=== PATIENT | male | born 1960 | race Caucasian/White ===

== ENCOUNTER 2017-11-24 13:49 | Emergency (ER) | payer BC, OTHER ==
[~2017-11-24] VITALS: Ht 177.8 cm; Wt 89.0 kg
[~2017-11-24 13:49] MED LIST: METF850T PO; PRAV20TA2 PO
[2017-11-24 14:08] VITALS: BP 124/84; PULSE 89; RESP 16; TEMP 98.5; O2SAT 95
[2017-11-24 16:01] LABS: AUTOMATED NEUTROPHIL # 3.2 TH/MM3 (1.8-7.7); BASOPHIL % 0.7 % (0.0-2.0); EOSINOPHIL # 0.2 TH/MM3 (0-0.4); EOSINOPHIL % 3.7 % (0.0-4.0); HEMATOCRIT 47.6 % (39.0-51.0); HEMOGLOBIN 15.8 GM/DL (13.0-17.0); LYMPH % 32.1 % (9.0-44.0); LYMPHOCYTE # 1.9 TH/MM3 (1.0-4.8); MEAN CELL VOLUME 91.8 FL (80.0-100.0); MEAN CORPUSCULAR HEMOGLOBIN 30.4 PG (27.0-34.0); MEAN CORPUSCULAR HGB CONC 33.1 % (32.0-36.0); MEAN PLATELET VOLUME 8.1 FL (7.0-11.0); MONO % 9.8 % (0.0-8.0); MONOCYTE # 0.6 TH/MM3 (0-0.9); NEUT % 53.7 % (16.0-70.0); PLATELET COUNT 229 TH/MM3 (150-450); RED BLOOD COUNT 5.18 MIL/MM3 (4.50-5.90); RED CELL DISTRIBUTION WIDTH 12.4 % (11.6-17.2); WHITE BLOOD COUNT 5.9 TH/MM3 (4.0-11.0)
[2017-11-24 16:16] LABS: CALCIUM 8.9 MG/DL (8.5-10.1)
[2017-11-24 16:17] LABS: BICARBONATE 24.3 MEQ/L (21.0-32.0)
[2017-11-24 16:20] LABS: CREATININE 0.93 MG/DL (0.60-1.30)
--- NOTE | 2017-11-24 16:33 | PD ---
HPI Chief Complaint: Numbness/Tingling Time Seen by Provider: 15:05 Travel History International Travel<30 days: No Contact w/Intl Traveler<30days: No Traveled to known affect area: No History of Present Illness HPI This is a 57-year-old male who presents to the emergency department for evaluation of right-sided facial weakness. Duration 4 days. 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 He denies paresthesia or weakness of the extremities. Paralysis is isolated to the right side of the face. He is having difficulty closing the right eye. He denies any headaches or visual changes. No prior history of TIA/CVA. He has a history of dyslipidemia and diabetes. Symptom severity is moderate. No aggravating or alleviating factors. PFSH Past Medical History Narrative Medical Dyslipidemia and type 2 diabetes High Cholesterol: Yes Diabetes: Yes Diminished Hearing: No Immunizations Current: Yes Social History Alcohol Use: Yes (2 DLY) Tobacco Use: No Substance Use: No Allergies-Medications (Allergen,Severity, Reaction): Coded Allergies: erythromycin base (Unverified Allergy, Intermediate, [facility]ES, 06/16/17) sulfamethoxazole (Unverified Allergy, Unknown, RASH, 06/16/17) trimethoprim (Unverified Allergy, Unknown, RASH, 06/16/17) Reported Meds & Prescriptions Reported Meds & Active Scripts Active Acyclovir 400 Mg Tab 400 Mg PO 5 TIMES A DAY 10 Days Prednisone 50 Mg Tab 50 Mg PO DAILY 5 Days Reported Pravastatin 20 Mg Tab 20 Mg PO DAILY Metformin (Metformin HCl) 850 Mg Tab 850 Mg PO BIDPC With meals Review of Systems Except as stated in HPI: all other systems reviewed are Neg General / Constitutional: No: Fever Eyes: No: Visual changes HENT: No: Headaches Cardiovascular: No: Chest Pain or Discomfort Respiratory: No: Shortness of Breath Gastrointestinal: No: Abdominal Pain Genitourinary: No: Dysuria Musculoskeletal: No: Pain Skin: No Rash Neurologic: Positive: Weakness (right facial muscles), Paresthesia (right cheek ), No: Dizziness, Syncope, Focal Abnormalities, Coordination Problem, Tremor, Ataxia, Headache, Change in Mentation, Slurred Speech, Incontinence, Seizures, Sensory Disturbance, Other Physical Exam Narrative GENERAL: Alert and well appearing 57-year-old male. SKIN: Warm and dry. No rashes HEAD: Atraumatic. Normocephalic. EYES: Pupils equal and round. EOMs intact. No injection or drainage. ENT: No nasal bleeding or discharge. Mucous membranes pink and moist. NECK: Trachea midline. No JVD. CARDIOVASCULAR: Regular rate and rhythm. RESPIRATORY: No accessory muscle use. Clear to auscultation. Breath sounds equal bilaterally. GASTROINTESTINAL: Abdomen soft, non-tender, nondistended. Hepatic and splenic margins not palpable. MUSCULOSKELETAL: Extremities without clubbing, cyanosis, or edema. No obvious deformities. NEUROLOGICAL: Awake and alert. Mild asymmetry of the face. Mild right facial palsy including the forehead. Patient has difficulty raising the right brow and closing the right eye. Motor grossly within normal limits. Five out of 5 muscle strength in the arms and legs. No limb drift. Normal speech. PSYCHIATRIC: Appropriate mood and affect; insight and judgment normal. Data Data Last Documented VS Vital Signs Date Time Temp Pulse Resp B/P (MAP) Pulse Ox O2 Delivery O2 Flow Rate FiO2 11/24/17 14:08 98.5 89 16 124/84 (97) 95 Orders Orders Mri Brain W/O Contrast (11/24/17 15:20) Basic Metabolic Panel (Bmp) (11/24/17 15:22) Complete Blood Count With Diff (11/24/17 15:22) Iv Access Insert/Monitor (11/24/17 15:22) Ed Discharge Order (11/24/17 18:25) Labs Laboratory Tests Test 11/24/17 15:44 White Blood Count 5.9 TH/MM3 Red Blood Count 5.18 MIL/MM3 Hemoglobin 15.8 GM/DL Hematocrit 47.6 % Mean Corpuscular Volume 91.8 FL Mean Corpuscular Hemoglobin 30.4 PG Mean Corpuscular Hemoglobin Concent 33.1 % Red Cell Distribution Width 12.4 % Platelet Count 229 TH/MM3 Mean Platelet Volume 8.1 FL Neutrophils (%) (Auto) 53.7 % Lymphocytes (%) (Auto) 32.1 % Monocytes (%) (Auto) 9.8 % Eosinophils (%) (Auto) 3.7 % Basophils (%) (Auto) 0.7 % Neutrophils # (Auto) 3.2 TH/MM3 Lymphocytes # (Auto) 1.9 TH/MM3 Monocytes # (Auto) 0.6 TH/MM3 Eosinophils # (Auto) 0.2 TH/MM3 Basophils # (Auto) 0.0 TH/MM3 CBC Comment DIFF FINAL Differential Comment Blood Urea Nitrogen 18 MG/DL Creatinine 0.93 MG/DL Random Glucose 191 MG/DL Calcium Level 8.9 MG/DL Sodium Level 136 MEQ/L Potassium Level 3.9 MEQ/L Chloride Level 104 MEQ/L Carbon Dioxide Level 24.3 MEQ/L Anion Gap 8 MEQ/L Estimat Glomerular Filtration Rate 84 ML/MIN MDM Medical Decision Making Medical Screen Exam Complete: Yes Emergency Medical Condition: Yes Differential Diagnosis Martines's palsy, CVA, TIA, brain tumor Narrative Course 57-year-old male here with right-sided facial paralysis with an onset 4 days ago. The facial palsy is mild and involves the entire right side of the face including the forehead. No other focal neuro deficits. Case was discussed with my attending physician Dr. Carrillo who also examined the patient. MRI was negative. This was discussed at length with patient. He will be treated for Martines's palsy. He is instructed to follow up his primary doctor/neurologist. Strict return precautions were discussed. He agrees to this plan. Diagnosis Primary Impression: Martines palsy Referrals: Neurologist Primary Care Physician Additional Instructions: Follow-up with her primary doctor this week. Return to the emergency department if you have new or worsening symptoms. Scripts Acyclovir (Acyclovir) 400 Mg Tab 400 MG PO 5 TIMES A DAY for Mgmt Viral Infection for 10 Days, TAB 0 Refills Prov: Belen Galeas 11/24/17 Prednisone (Prednisone) 50 Mg Tab 50 MG PO DAILY for 5 Days, #5 TAB 0 Refills Prov: Belen Galeas 11/24/17 Disposition: 01 DISCHARGE HOME Condition: Stable Belen Galeas Nov 24, 2017 16:33
--- NOTE | 2017-11-24 17:28 | RADRPT ---
EXAM DATE/TIME: 11/24/2017 16:56 [facility] COMPARISON: No previous studies available for comparison. INDICATIONS : Stroke. Right sided facial weakness. MEDICAL HISTORY : Diabetes mellitus type 2. Hypercholesterolemia. SURGICAL HISTORY : None. ENCOUNTER: Initial ACUITY: 4-6 days PAIN SCORE: 0/10 LOCATION: cranial TECHNIQUE: Multiplanar, multisequence MRI of the brain was performed without contrast. FINDINGS: CEREBRUM: The ventricles are normal for age. No evidence of midline shift, mass lesion, hemorrhage or acute in farction. No extraaxial fluid collections are seen. The pituitary gland and suprasellar cistern are normal in configuration. WHITE MATTER: No significant signal abnormalities are seen in the white matter. POSTERIOR FOSSA: The cerebellum and brainstem are intact. The 4th ventricle is midline. The cerebellopontine angle is unremarkable. The cerebellar tonsils are normal in position. DIFFUSION IMAGING: No focal areas of restricted diffusion are seen. No evidence of acute infarction. EXTRACRANIAL: The visualized portions of the orbits and paranasal sinuses are unremarkable. CONCLUSION: 1. No acute findings. Bakari Griffin MD on November 24, 2017 at 17:22 Board Certified Radiologist. This report was verified electronically.
[2017-11-24] MEDS ORDERED: ACYC400T PO (18:23)
[2017-11-24] MEDS ORDERED: PRED50 PO (18:23)
== END 2017-11-24 18:36 | disposition home or self-care (01) ==
LOC: PHEFT 13:49
DX: G51.0 Bell's palsy (principal); E11.9 Type 2 diabetes mellitus without complications; E78.00 Pure hypercholesterolemia, unspecified; Z79.84 Long term (current) use of oral hypoglycemic drugs
CPT/HCPCS: 70551; 80048; 85025; 99284